=== PATIENT | male | born 1980 | race American Indian/Alaskan Native ===

== ENCOUNTER 2017-08-19 11:21 | Emergency (ER) | payer SELFPAY ==
[2017-08-19 12:23] VITALS: BP 117/77
== END 2017-08-19 16:13 | disposition left against medical advice (07) ==
LOC: ED 11:21
DX: J11.1 Influenza due to unidentified influenza virus with other respiratory manifestations (principal); Z53.21 Procedure and treatment not carried out due to patient leaving prior to being seen by health care provider